=== PATIENT | female | born 1935 | race Caucasian/White ===

== ENCOUNTER → 2016-07-25 | Outpatient (CLI) | payer MEDICARE, OTHER | LOC: CT 07-23 09:00 → KOH-I 13:48 → CT 14:30 | DX: R91.1 Solitary pulmonary nodule (principal) | CPT/HCPCS: 71250 ==

== ENCOUNTER → 2016-07-25 | Outpatient (CLI) | payer MEDICARE, OTHER ==
[2016-07-25 13:37] LABS: HEMOGLOBIN 16.6 gm/dl (12.3-15.3); RED BLOOD COUNT 5.15 M/UL (4.00-5.10); WHITE BLOOD COUNT 8.6 K/UL (4.5-11.0)
== END ==
LOC: LAB 12:56
PROVIDERS: Internal Medicine Hematology & Oncology
DX: R91.1 Solitary pulmonary nodule (principal)
CPT/HCPCS: 36415; 80053; 85025

== ENCOUNTER 2020-04-12 09:53 | Inpatient (IN) | payer OTHER ==
[~2020-04-12] VITALS: Ht 167.6 cm; Wt 60.6 kg
[~2020-04-12 09:53] MED LIST: BIOTIN1 M1 PO; CLARITIN10 MG PO; COZAAR25 MG PO; ECOTRIN81 MG PO; ELIQUIS 2.5 MG2.5 MG PO; ELIQUIS2.5 MG PO; FEOSOL325 MG PO; LEVOTHYROXINE50 MCG PO; LOPRESSOR 25 MG25 MG PO; LOPRESSOR 50 MG50 MG PO; MULTAQ400 MG PO; PHOSLO 667 MG667 MG PO; VIBRAMYCIN100 MG PO; ZOSYN 3.3753.375 G1 IV
[2020-04-12 10:29] LABS: HEMOGLOBIN 16.7 gm/dl (12.3-15.3); RED BLOOD COUNT 4.81 M/UL (4.00-5.10); WHITE BLOOD COUNT 8.5 K/UL (4.5-11.0)
[2020-04-12 11:52] LABS: BUN/CREATININE RATIO 19 (0-10)
[2020-04-12] MEDS ORDERED: LIPITOR20 MG PO (13:21)
[2020-04-12] MEDS ORDERED: VITAMIN D 40400 UNIT PO (13:23)
[2020-04-12] MEDS ORDERED: FUROSEMIDE40 MG PO (15:27)
[2020-04-12] MEDS ORDERED: SYMBICORT 16010.2 GM INH (16:37)
[2020-04-12] MEDS ORDERED: EUTHYROX50 MCG PO (16:38)
[2020-04-12] MEDS ORDERED: POTASSIUM CHLO10 ME1 PO (16:42)
[2020-04-12] MEDS ORDERED: VENTOLIN HFA 66.7 GM INH (16:46)
[2020-04-12] MEDS ORDERED: ZINC50 M1 PO (17:04)
[2020-04-13 05:01] LABS: WHITE BLOOD COUNT 7.8 K/UL (4.5-11.0)
[2020-04-13 05:02] LABS: HEMOGLOBIN 14.5 gm/dl (12.3-15.3); RED BLOOD COUNT 4.24 M/UL (4.00-5.10)
[2020-04-13 05:36] LABS: BUN/CREATININE RATIO 25 (0-10)
[2020-04-15 06:27] LABS: HEMOGLOBIN 15.4 gm/dl (12.3-15.3); RED BLOOD COUNT 4.48 M/UL (4.00-5.10)
[2020-04-16 03:12] LABS: HEMOGLOBIN 14.3 gm/dl (12.3-15.3); RED BLOOD COUNT 4.18 M/UL (4.00-5.10)
[2020-04-16 03:16] LABS: WHITE BLOOD COUNT 8.1 K/UL (4.5-11.0)
[2020-04-17 03:08] LABS: HEMOGLOBIN 14.6 gm/dl (12.3-15.3); RED BLOOD COUNT 4.29 M/UL (4.00-5.10); WHITE BLOOD COUNT 8.8 K/UL (4.5-11.0)
[2020-04-17] MEDS ORDERED: ASPIRIN EC81 MG PO (16:17)
[2020-04-17] MEDS ORDERED: LOPRESSOR 25 MG25 MG PO (16:17)
[2020-04-17] MEDS ORDERED: ACETAZOLAMIDE250 MG PO (16:17)
[2020-04-17] MEDS ORDERED: AUGMENTIN 500-500 MG PO (16:17)
[2020-04-17] MEDS ORDERED: POTASSIUM CHLO10 ME1 PO (16:17)
[2020-04-17] MEDS ORDERED: THERAGRAN M TAB1 EA PO (16:17)
== END 2020-04-17 18:34 | disposition home or self-care (01) | DRG 602 ==
LOC: ER1 09:53 → CDU 14:22 → MED SURG 4 18:28
PROVIDERS: Family Medicine; Physician Assistant Medical; ADMIT Internal Medicine Infectious Disease
PROC: B24BZZZ Ultrasonography of Heart with Aorta (ICD-10-PCS; principal; 2020-04-14)
DX: L03.119 Cellulitis of unspecified part of limb (principal); I50.33 Acute on chronic diastolic (congestive) heart failure; J96.21 Acute and chronic respiratory failure with hypoxia; Z99.81 Dependence on supplemental oxygen; Z20.822 Contact with and (suspected) exposure to COVID-19; I11.0 Hypertensive heart disease with heart failure; E03.9 Hypothyroidism, unspecified; J44.9 Chronic obstructive pulmonary disease, unspecified; I48.0 Paroxysmal atrial fibrillation; I49.5 Sick sinus syndrome; Z87.891 Personal history of nicotine dependence; E78.5 Hyperlipidemia, unspecified; I44.0 Atrioventricular block, first degree; Z98.42 Cataract extraction status, left eye; Z98.41 Cataract extraction status, right eye; Z96.1 Presence of intraocular lens; Z88.1 Allergy status to other antibiotic agents; Z79.899 Other long term (current) drug therapy; Z82.49 Family history of ischemic heart disease and other diseases of the circulatory system; Z80.3 Family history of malignant neoplasm of breast; D64.89 Other specified anemias; K59.00 Constipation, unspecified; E87.5 Hyperkalemia; I70.203 Unspecified atherosclerosis of native arteries of extremities, bilateral legs; I27.20 Pulmonary hypertension, unspecified; I08.1 Rheumatic disorders of both mitral and tricuspid valves
CPT/HCPCS: ECHO; 36415; 36600; 71045; 80048; 80053; 82550; 82553; 82803; 83605; 83735; 83874; 83880; 84484; 85025; 85027; 85610; 86140; 90471; 93005; 93306; 93925; 96374; 96375; 96376; 97116-GP-CQ; 97162; 99285; J0696; J1120; J1940; J2930; U0002

== ENCOUNTER → 2020-05-23 | Outpatient (CLI) | payer OTHER ==
[~2020-05-23] MED LIST changes: +ACETAZOLAMIDE250 MG PO; +ASPIRIN EC81 MG PO; +AUGMENTIN 500-500 MG PO; +EUTHYROX50 MCG PO; +FUROSEMIDE40 MG PO; +LIPITOR20 MG PO; +POTASSIUM CHLO10 ME1 PO; +SYMBICORT 16010.2 GM INH; +THERAGRAN M TAB1 EA PO; +VENTOLIN HFA 66.7 GM INH; +VITAMIN D 40400 UNIT PO; +ZINC50 M1 PO
== END ==
LOC: WCC 09:00
PROC: 2W1QX6Z Compression of Right Lower Leg using Pressure Dressing (ICD-10-PCS; principal; 2020-05-23)
DX: S81.812A Laceration without foreign body, left lower leg, initial encounter (principal); S91.312A Laceration without foreign body, left foot, initial encounter; S81.811A Laceration without foreign body, right lower leg, initial encounter; S91.311A Laceration without foreign body, right foot, initial encounter; I96 Gangrene, not elsewhere classified; J44.9 Chronic obstructive pulmonary disease, unspecified; D64.9 Anemia, unspecified; I50.9 Heart failure, unspecified; I48.91 Unspecified atrial fibrillation; Z88.1 Allergy status to other antibiotic agents; Z79.2 Long term (current) use of antibiotics; Z79.01 Long term (current) use of anticoagulants; Z79.899 Other long term (current) drug therapy; Z87.891 Personal history of nicotine dependence; X58.XXXA Exposure to other specified factors, initial encounter
CPT/HCPCS: 97597; 97598

== ENCOUNTER → 2020-05-29 | Outpatient (CLI) | payer OTHER | LOC: WCC 10:59 | DX: S81.819A Laceration without foreign body, unspecified lower leg, initial encounter (principal); J44.9 Chronic obstructive pulmonary disease, unspecified; D64.9 Anemia, unspecified; I50.9 Heart failure, unspecified; I73.9 Peripheral vascular disease, unspecified; I48.91 Unspecified atrial fibrillation; R60.0 Localized edema; M79.661 Pain in right lower leg; M79.662 Pain in left lower leg; X58.XXXA Exposure to other specified factors, initial encounter | CPT/HCPCS: 97597; 97598 ==

== ENCOUNTER → 2020-06-06 | Outpatient (CLI) | payer OTHER | LOC: WCC 11:30 | PROC: 0JBP0ZZ Excision of Left Lower Leg Subcutaneous Tissue and Fascia, Open Approach (ICD-10-PCS; principal; 2020-06-06) | PROC: 0JBN0ZZ Excision of Right Lower Leg Subcutaneous Tissue and Fascia, Open Approach (ICD-10-PCS; 2020-06-06) | DX: S81.812A Laceration without foreign body, left lower leg, initial encounter (principal); S81.811A Laceration without foreign body, right lower leg, initial encounter; I96 Gangrene, not elsewhere classified; J44.9 Chronic obstructive pulmonary disease, unspecified; D64.9 Anemia, unspecified; I50.9 Heart failure, unspecified; I48.91 Unspecified atrial fibrillation; I25.10 Atherosclerotic heart disease of native coronary artery without angina pectoris; Z79.2 Long term (current) use of antibiotics; Z79.01 Long term (current) use of anticoagulants; Z79.899 Other long term (current) drug therapy; Z88.1 Allergy status to other antibiotic agents; X58.XXXA Exposure to other specified factors, initial encounter ==